=== PATIENT | male | born 1950 | race Caucasian/White ===

== ENCOUNTER → 2018-04-02 | Outpatient (CLI) | payer MEDICARE ==
[2015-01-31 14:00] VITALS: BP 141/81
[~2018-04-02] MED LIST: ALPR0.254 PO; CIPR500T PO; DULO60CA6 PO; HYDR-971 PO; TAMS0.4C2 PO
--- NOTE | 2018-04-02 13:42 | RAD ---
EXAM: Bilateral knees, 6 views. HISTORY: Pain and swelling. COMPARISON: None. FINDINGS: Frontal, lateral and oblique views of both knees are obtained. There is right medial compartment joint space narrowing with subchondral sclerosis, spurring and subchondral cyst formation. There is bilateral medial and lateral compartment chondrocalcinosis. There is spurring and subchondral cyst formation involving the right patellofemoral compartment. There is also subchondral cyst formation involving the left patellofemoral compartment. There is a suspected small left knee effusion. IMPRESSION: 1. Moderate right medial compartment predominant tricompartmental osteoarthritis of both knees. 2. Suspected small left knee effusion. 3. No acute osseous finding. Electronically signed by: Sita Solomon MD (04/02/2018 1:39 PM) [id number]
== END | disposition home or self-care (01) ==
LOC: PMG 10:46
PROVIDERS: ATTEND Physician Assistant Medical
DX: M17.0 Bilateral primary osteoarthritis of knee (principal)
CPT/HCPCS: 73562

== ENCOUNTER → 2018-09-29 | Outpatient (CLI) | payer MEDICARE ==
[2015-01-31 14:00] VITALS: BP 141/81
[~2018-09-29] MED LIST changes: +HYDR-3165 PO; -HYDR-971 PO
--- NOTE | 2018-09-29 16:37 | RAD ---
Chest, 2 views, 09/29/2018: HISTORY: Preop evaluation for knee surgery The heart size and pulmonary vascularity are normal. There is a small spiculated density projected over the left midlung. It appears more dense than the adjacent ribs and may represent a calcified scar. There are several additional tiny nodular opacities located just peripheral to this spiculated density. No pulmonary infiltrate is seen. There is no evidence of pleural fluid. Moderate spurring is present in the spine. IMPRESSION: 1. Left midlung opacities may represent calcific scarring. Correlation with previous chest radiographs if available would be most useful in establishing stability. If none are available, radiographic follow-up or CT scanning is suggested. 2. No definite acute abnormality is detected. Electronically signed by: Reinaldo Gary MD (09/29/2018 4:33 PM) [facility]
== END | disposition home or self-care (01) ==
LOC: RAD 12:14
PROVIDERS: ATTEND Physician Assistant Medical
DX: Z01.818 Encounter for other preprocedural examination (principal); M17.12 Unilateral primary osteoarthritis, left knee
CPT/HCPCS: 71046

== ENCOUNTER → 2019-01-10 | Outpatient (CLI) | payer MEDICARE ==
[2015-01-31 14:00] VITALS: BP 141/81
[2019-01-10 13:20] LABS: BASO # 0.1 x10^3/uL (0.0-0.2); BASO % 0 % (0-3); EOS % 0 % (0-3); HEMATOCRIT 39.1 % (39.0-53.0); LYMPH % 6 % (24-48); MEAN CORPUSCULAR HEMOGLOBIN 29 pg (25-35); MEAN CORPUSCULAR HGB CONC 33 g/dL (31-37); MEAN CORPUSCULAR VOLUME 86 fL (79-100); MONO % 6 % (0-9); NEUT # 14.6 x10^3uL (1.8-7.7); NEUT % 87 % (31-73); PLATELET COUNT 371 x10^3/uL (140-400); RED BLOOD COUNT 4.56 x10^6/uL (4.30-5.70); RED CELL DISTRIBUTION WIDTH 15.4 % (11.5-14.5); WHITE BLOOD COUNT 16.7 x10^3/uL (4.0-11.0)
[2019-01-10 13:27] LABS: ALBUMIN 3.8 g/dL (3.4-5.0); CALCIUM 9.4 mg/dL (8.5-10.1); CREATININE 0.9 mg/dL (0.7-1.3); GFR 83.9; TOTAL BILIRUBIN 1.1 mg/dL (0.2-1.0); TOTAL PROTEIN 7.5 g/dL (6.4-8.2)
[2019-01-10 14:17] LABS: % BANDS 2 % (0-9); % LYMPHS 2 % (24-48); % MONOS 7 % (0-10); % SEGS 89 % (35-66)
[2019-01-10 14:18] LABS: PLT ESTIMATE INCREASED (ADEQUATE); TOXIC GRANULATION SLIGHT; TOXIC VACUOLATION SLIGHT
== END | disposition home or self-care (01) ==
LOC: PMG 12:10
PROVIDERS: ATTEND Physician Assistant Medical
DX: N41.9 Inflammatory disease of prostate, unspecified (principal); R30.0 Dysuria
CPT/HCPCS: 36415; 80053; 85007; 85025

== ENCOUNTER → 2021-05-22 | Outpatient (CLI) | payer MEDICARE ==
[2015-01-31 14:00] VITALS: BP 141/81
[~2021-05-22] MED LIST changes: -CIPR500T PO; +CIPR500T2 PO
--- NOTE | 2021-05-22 12:42 | RAD ---
MR#: [id number] Date of Study: 05/22/2021 Ordering Physician: MIMI WEBER Referring Physician: JAKE MCGOWAN Tech: APPROVED REPORT Test Type: Exercise Stress Nurse/Tech: Amira / Wei Test Indications: Abnormal EKG, thoracic aortic ectasia Cardiac History: No known cardiac Resting Heart Rate: 67 bpm Resting Blood Pressure: 119/64mmHg Pretest Chest Pain: No chest pain Stress Symptoms Dyspnea POST EXERCISE Reason for Termination: Reached target heart rate Target HR: Yes Max HR: 147 bpm 116% of Maximum Predicted HR: 126 bpm Exercise duration: 4:30 min:sec, 2 Stage Exercise capacity: 7.0 94%METs Blood Pressure response to exercise: Normal blood pressure response during stress. Heart Rate response to exercise: increased Chest Pain: No. Arrhythmia: No. ST Change: No. INTERPRETATION Stress EKG Conclusion: Baseline EKG showed sinus rhythm. No ischemic changes at peak stress. No arr hythmias. Conclusion 1. Treadmill exercise stress electrocardiogram did not show any diagnostic evidence of ischemia. 2. Patient had average exercise tolerance. Signed by : Jamison Oliveira Electronically Approved : 05/22/2021 12:42:10
== END ==
LOC: NM 08:23
PROVIDERS: ATTEND Family Medicine
DX: I77.810 Thoracic aortic ectasia (principal); R94.31 Abnormal electrocardiogram [ECG] [EKG]
CPT/HCPCS: 93017